=== PATIENT | female | born 1975 | race Caucasian/White ===

== ENCOUNTER → 2016-12-01 | Outpatient (CLI) | payer OTHER ==
[~2016-12-01] MED LIST: ASPIRIN81 M1 PO; BIRTH CONTROL; COREG12.5 M1 PO; IRON325 M1 PO; LISINOPRIL10 M1 PO; MEDROL DOSEPAK4 MG PO; PLAVIX75 M1 PO; PROTONIX40 MG PO
== END | disposition home or self-care (01) ==
LOC: US 02:17
DX: K76.0 Fatty (change of) liver, not elsewhere classified (principal)

== ENCOUNTER 2018-05-08 21:24 | Inpatient (IN) | payer OTHER ==
[~2018-05-08] VITALS: Ht 157.5 cm; Wt 84.1 kg
--- NOTE | ~2018-05-08 | EKG ---
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
--- NOTE | ~2018-05-08 | CON ---
[place], [place] REPORT OF CONSULTATION NAME: CASPER AREVALO UNIT #: [id number] ROOM: 518 DOCTOR: MARY GARZA MD BIRTHDATE: [birth year] DOS: 05/09/2018 HISTORY OF PRESENT ILLNESS: A 43-year-old female with history of previous myocardial infarction with a coronary dissection and stent placement at [facility] in 2016. The patient came in with midsternal chest discomfort radiating to the left arm for the last one hour. No acute EKG changes suggestion of myocardial injury or infarction. Cardiac enzymes have been negative and she is doing quite well right now. Denies any chest discomfort, shortness of breath at rest. No nausea, no vomiting, no GI issues. No neurological issues. PAST MEDICAL HISTORY: Hypertension, coronary artery disease, stent placement, myocardial infarction. MEDICATIONS: The patient is on carvedilol, lisinopril and aspirin. ALLERGIES: None. REVIEW OF SYSTEMS: CONSTITUTIONAL: No fever, no chills. HEENT: No visual disturbance or hearing problems. CARDIOVASCULAR: As per HPI. GASTROINTESTINAL: No nausea, no vomiting. GENITOURINARY: No dysuria or hematuria. NEUROLOGIC: Stable. PHYSICAL EXAMINATION: GENERAL: The patient is alert, oriented x 3. HEENT: Unremarkable. NECK: Supple, no JVD. LUNGS: Clear. HEART: Sounds are regular. NEUROLOGICAL: Stable. LABORATORY DATA: Hemoglobin 11.9, hematocrit 35.9. Cardiac enzymes have been negative. INR is 1, creatinine is 1.06. Sodium 139, potassium 3.6. SGOT, SGPT is within normal limits. EKG sinus rhythm with nonspecific ST-T changes. IMPRESSION: The patient with known history of coronary artery disease, hypertension, hyperlipidemia, previous stent placement, admitted with chest discomfort radiating as well as to the left arm. RECOMMENDATIONS: Continue the present medications, enzymes have been negative, proceed with a nuclear stress test because of the significant cardiac history and symptoms and I will follow up with you. [place], [place] REPORT OF CONSULTATION NAME: CASPER AREVALO UNIT #: [id number] ROOM: 518 DOCTOR: MARY GARZA MD BIRTHDATE: [birth year] MARY GARZA MD CM:CONSTR:REPORT OF CONSULTATION 9 05/09/18 0735 interface
--- NOTE | ~2018-05-08 | EKG ---
[place], [place] ELECTROCARDIOGRAM REPORT NAME: CASPER AREVALO UNIT #: [id number] ROOM: 518 DOCTOR: PARUL DRAFT REPORT BIRTHDATE: [birth year] 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
--- NOTE | ~2018-05-08 | EKG ---
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
--- NOTE | ~2018-05-08 | ST ---
[place], [place] EXERCISE STRESS TEST REPORT NAME: CASPER AREVALO UNIT #: [id number] ROOM: 518 DOCTOR: MARY GARZA MD BIRTHDATE: [birth year] DOS: 05/09/2018 LEXISCAN PORTION OF THE LEXISCAN CARDIOLITE. A 0.4 mg Lexiscan, duration of 10 seconds. With Lexiscan, no new EKG changes. No chest discomfort. Blood pressure and heart rate response was normal. Nuclear images will be reported separately. MARY GARZA MD CM:STRESS:EXERCISE STRESS TEST REPORT 9 MARY GARZA MD
--- NOTE | ~2018-05-08 | WRIGHTHP ---
[place], [place] PATIENT HISTORY AND PHYSICAL EXAM [id number] UN[facility] #: [id number] ROOM: 518 DOCTOR: AMAN CHINO MD BIRTHDATE: [birth year] DOS: 05/08/2018 HISTORY OF PRESENT ILLNESS: This patient is a 43-year-old. 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 She was at work yesterday when she noted that she was having some retrosternal chest pain and some left arm pain. She thought may be having a panic attack, so decided to go home, but by the time she got into her car, she experienced extreme diaphoresis and severe heaviness in the chest and the left arm became almost numb, so she decided to come back to the Emergency Room, where she was evaluated and was admitted. She denies having any chest pains or palpitations after admission and the pain slowly went away. She denies having any nausea, any emesis, any fever or chills. PAST MEDICAL HISTORY: 1. Significant for history of coronary artery disease with history of dissection resulting in [place] and stent [place] [address] Sierra. She has not followed up with anybody for the year and a half. 2. Mixed hyperlipidemia. MEDICATIONS: Medications that she is currently on are aspirin 81 daily, Wellbutrin 150 daily, Coreg 12.5 b.i.d., lisinopril 10 daily. SOCIAL HISTORY: Nonsmoker, does not use any alcohol. FAMILY HISTORY: Significant for father who has hypertension, mother who is healthy and one brother who has ulcerative colitis. PHYSICAL EXAMINATION: GENERAL: She is awake, alert and oriented. VITAL SIGNS: Graphic trend shows a pressure of 127/84, pulse of 80, respirations 16, temperature 97.9. LUNGS: Diminished breath sounds. No wheezes, rales, rhonchi heard. HEART: Regular. ABDOMEN: Soft, scaphoid. EXTREMITIES: Without any edema. ASSESSMENT AND PLAN: 1. The patient with precordial chest pain, rule out myocardial infarction protocol was ordered. So far, the patient is negative. Consultation with Dr. Cross was obtained. The patient has already undergone the stress test and an echocardiogram. If the stress comes back negative, the patient should be able to go home and follow up with the PCP as an outpatient. 2. Mixed hyperlipidemia, currently not on any medications. Lipid profile will be ordered. 3. Elevated creatinine noted with a GFR of 56, stage 2 kidney disease. The patient will need to have that closely followed up. The patient is advised to follow up with the PCP. [place], [place] PATIENT HISTORY AND PHYSICAL EXAM NAME: CASPER AREVALO UNIT #: [id number] ROOM: 8 DOCTOR: AMAN CHINO MD BIRTHDATE: [birth year] AMAN CHINO MD CM:HISPHYS:PATIENT HISTORY AND PHYSICAL EXAMINATION [id number] AMAN CHINO MD 05/09/18 1130 interface
[2018-05-08 21:38] VITALS: BP 155/87
[2018-05-08 21:42] LABS: BASO % 0.4 % (0.0-1.0); EOS # 0.4 10*3/uL (0.0-0.4); EOS % 3.4 % (1.0-4.0); HEMATOCRIT 35.6 % (37.0-47.0); HEMOGLOBIN 11.9 g/dl (12.0-16.0); LYMPH # 3.7 10*3/uL (1.3-4.4); LYMPH % 32.4 % (27.0-41.0); MEAN CORPUSCULAR HGB 32.1 pg (27.0-31.0); MEAN CORPUSCULAR HGB CONC 33.4 g/dl (33.0-37.0); MEAN PLATELET VOLUME 10.7 fl (9.6-12.3); MONO # 0.8 10*3/uL (0.1-1.0); NEUT # 6.4 10*3/uL (2.3-7.9); NEUT % 56.4 % (47.0-73.0); PLATELET COUNT AUTOMATED 260 10*3/uL (130-400); RED BLOOD COUNT 3.71 10*6/uL (4.10-5.10); RED CELL DISTRI WIDTH 12.2 % (0-14.5); WHITE BLOOD COUNT 11.3 10*3/uL (4.8-10.8)
[2018-05-08] MEDS ORDERED: BUPROPION HCL150 M1 PO (21:45)
[2018-05-08 21:55] LABS: ACT PARTIAL THROMBO TIME 25.5 SECONDS (20.8-31.5)
[2018-05-08 21:57] LABS: ALBUMIN 3.5 gm/dl (3.1-4.5); ALKALINE PHOSPHATASE 93 U/L (45-117); BUN 20 mg/dl (7-24); CHLORIDE 108 mmol/L (98-107); CREATININE 1.06 mg/dL (0.55-1.02); POTASSIUM 3.6 mmol/L (3.5-5.1); SGOT/AST 10 IU/L (3-35); SGPT/ALT 18 U/L (12-78); SODIUM 139 mmol/L (136-145); TOTAL PROTEIN 7.3 gm/dL (6.4-8.2)
[2018-05-08 22:00] LABS: TROPONIN I < 0.015 ng/ml (<0.045)
[2018-05-08 22:10] VITALS: BP 146/80
[2018-05-08 22:45] VITALS: BP 135/80
[2018-05-08 23:30] VITALS: BP 127/84
[2018-05-09 08:09] LABS: CHOLESTEROL 166 mg/dL (<200); HDL CHOLESTEROL 52 mg/dl (40-60); LDL CHOLESTEROL 92 mg/dL (9-159); TRIGLYCERIDES 112 mg/dl (<150); VLDL CHOLESTEROL 22 mg/dL (6-40)
[2018-05-09 12:00] VITALS: BP 130/65
== END 2018-05-09 13:43 | disposition home or self-care (01) | DRG 313 ==
LOC: ED 21:24 → 5E 22:33 → EDHOLD 22:33 → 5E 22:45
PROVIDERS: Internal Medicine; Student in an Organized Health Care Education/Training Program
PROC: 3E073KZ Introduction of Other Diagnostic Substance into Coronary Artery, Percutaneous Approach (ICD-10-PCS; principal; 2018-05-09)
PROC: 4A02XM4 Measurement of Cardiac Total Activity, External Approach (ICD-10-PCS; principal; 2018-05-09)
DX: R07.2 Precordial pain (principal); I25.10 Atherosclerotic heart disease of native coronary artery without angina pectoris; N18.2 Chronic kidney disease, stage 2 (mild); E78.2 Mixed hyperlipidemia; I12.9 Hypertensive chronic kidney disease with stage 1 through stage 4 chronic kidney disease, or unspecified chronic kidney disease; I25.2 Old myocardial infarction; Z95.5 Presence of coronary angioplasty implant and graft; Z79.82 Long term (current) use of aspirin; Z79.899 Other long term (current) drug therapy

== ENCOUNTER → 2018-08-30 | Outpatient (CLI) | payer OTHER ==
[~2018-08-30] MED LIST changes: +BUPROPION HCL150 M1 PO
== END | disposition home or self-care (01) ==
LOC: US 02:43
DX: N93.9 Abnormal uterine and vaginal bleeding, unspecified (principal)

== ENCOUNTER → 2019-06-08 | Outpatient (CLI) | payer OTHER ==
[2019-06-08 07:45] LABS: HEMATOCRIT 38.6 % (37.0-47.0); HEMOGLOBIN 12.5 g/dl (12.0-16.0); MEAN CELL VOLUME 97.7 fl (81.0-99.0); MEAN CORPUSCULAR HGB 31.6 pg (27.0-31.0); MEAN CORPUSCULAR HGB CONC 32.4 g/dl (33.0-37.0); MEAN PLATELET VOLUME 11.1 fl (9.6-12.3); RED BLOOD COUNT 3.95 10*6/uL (4.10-5.10); RED CELL DISTRI WIDTH 12.1 % (0-14.5); WHITE BLOOD COUNT 7.5 10*3/uL (4.8-10.8)
[2019-06-08 08:34] LABS: ALBUMIN 3.7 gm/dl (3.1-4.5); ALKALINE PHOSPHATASE 87 U/L (45-117); BUN 16 mg/dl (7-24); CHLORIDE 111 mmol/L (98-107); CHOLESTEROL 167 mg/dL (<200); CREATININE 0.93 mg/dL (0.55-1.02); HDL CHOLESTEROL 48 mg/dl (40-60); LDL CHOLESTEROL 97 mg/dL (9-159); POTASSIUM 3.8 mmol/L (3.5-5.1); SGOT/AST 7 IU/L (3-35); SGPT/ALT 18 U/L (12-78); SODIUM 141 mmol/L (136-145); TOTAL PROTEIN 7.7 gm/dL (6.4-8.2); TRIGLYCERIDES 112 mg/dl (<150); VLDL CHOLESTEROL 22 mg/dL (6-40)
== END | disposition home or self-care (01) ==
LOC: LAB 07:25
PROVIDERS: Family Medicine
DX: E55.9 Vitamin D deficiency, unspecified (principal); E78.00 Pure hypercholesterolemia, unspecified; I10 Essential (primary) hypertension

== ENCOUNTER → 2020-06-09 | Outpatient (CLI) | payer OTHER ==
[2020-06-09 09:33] LABS: HEMATOCRIT 37.6 % (37.0-47.0); MEAN CELL VOLUME 97.2 fl (81.0-99.0); MEAN CORPUSCULAR HGB 31.5 pg (27.0-31.0); MEAN CORPUSCULAR HGB CONC 32.4 g/dl (33.0-37.0); MEAN PLATELET VOLUME 11.4 fl (9.6-12.3); RED BLOOD COUNT 3.87 10*6/uL (4.10-5.10); WHITE BLOOD COUNT 9.2 10*3/uL (4.8-10.8)
[2020-06-09 09:57] LABS: ALBUMIN 3.4 gm/dl (3.1-4.5); BUN 15 mg/dl (7-24); CHLORIDE 108 mmol/L (98-107); POTASSIUM 4.1 mmol/L (3.5-5.1); SODIUM 138 mmol/L (136-145)
[2020-06-09 10:03] LABS: ALKALINE PHOSPHATASE 77 U/L (45-117); CHOLESTEROL 195 mg/dL (<200); CREATININE 0.86 mg/dL (0.55-1.02); HDL CHOLESTEROL 56 mg/dl (40-60); LDL CHOLESTEROL 114 mg/dL (9-159); SGOT/AST 12 IU/L (3-35); SGPT/ALT 17 U/L (12-78); TOTAL PROTEIN 7.1 gm/dL (6.4-8.2); TRIGLYCERIDES 123 mg/dl (<150); VLDL CHOLESTEROL 25 mg/dL (6-40)
== END | disposition home or self-care (01) ==
LOC: LAB 08:04
PROVIDERS: ATTEND Family Medicine
DX: Z13.220 Encounter for screening for lipoid disorders (principal); I10 Essential (primary) hypertension; E55.9 Vitamin D deficiency, unspecified; R53.83 Other fatigue; R63.5 Abnormal weight gain

== ENCOUNTER → 2021-12-30 | Outpatient (CLI) | payer OTHER | END | disposition home or self-care (01) | LOC: MAMMO 08:03 | PROVIDERS: ATTEND Nurse Practitioner Women's Health | DX: Z12.31 Encounter for screening mammogram for malignant neoplasm of breast (principal); N63.13 Unspecified lump in the right breast, lower outer quadrant ==

== ENCOUNTER → 2022-02-11 | Outpatient (CLI) | payer OTHER | END | disposition home or self-care (01) | LOC: US 02-10 18:20 | PROVIDERS: ATTEND Nurse Practitioner Women's Health | DX: N63.0 Unspecified lump in unspecified breast (principal); N60.01 Solitary cyst of right breast ==

== ENCOUNTER → 2022-07-17 | Outpatient (CLI) | payer OTHER ==
[2022-07-17 08:44] LABS: HEMATOCRIT 39.3 % (37.0-47.0); MEAN CELL VOLUME 96.6 fl (81.0-99.0); MEAN CORPUSCULAR HGB 31.4 pg (27.0-31.0); MEAN CORPUSCULAR HGB CONC 32.6 g/dl (33.0-37.0); MEAN PLATELET VOLUME 10.9 fl (9.6-12.3); RED BLOOD COUNT 4.07 10*6/uL (4.10-5.10); RED CELL DISTRI WIDTH 11.9 % (0-14.5); WHITE BLOOD COUNT 7.7 10*3/uL (4.8-10.8)
[2022-07-17 09:03] LABS: ALKALINE PHOSPHATASE 79 U/L (46-116); BUN 13 mg/dl (9-23); CHLORIDE 108 mmol/L (98-107); CHOLESTEROL 199 mg/dL (<200); LDL CHOLESTEROL 127 mg/dL (9-159); POTASSIUM 4.1 mmol/L (3.4-5.1); SGPT/ALT 16 U/L (10-49); TOTAL PROTEIN 7.5 gm/dL (6.0-8.0); TRIGLYCERIDES 98 mg/dl (<150)
== END | disposition home or self-care (01) ==
LOC: LAB 07:47
PROVIDERS: ATTEND Family Medicine
DX: Z13.220 Encounter for screening for lipoid disorders (principal); I10 Essential (primary) hypertension

== ENCOUNTER → 2023-03-17 | Outpatient (CLI) | payer OTHER | END | disposition home or self-care (01) | LOC: MAMMO 01:57 | PROVIDERS: ATTEND Nurse Practitioner Women's Health | DX: Z12.31 Encounter for screening mammogram for malignant neoplasm of breast (principal) ==

== ENCOUNTER 2023-07-27 17:16 | Inpatient (IN) | payer OTHER ==
[~2023-07-27] VITALS: Ht 157.4 cm; Wt 90.3 kg
[2023-07-27 17:22] VITALS: BP 113/70
[2023-07-27 17:45] LABS: BASO % 0.4 % (0.0-1.0); EOS # 0.4 10*3/uL (0.0-0.4); EOS % 4.4 % (1.0-4.0); HEMATOCRIT 36.3 % (37.0-47.0); LYMPH # 2.9 10*3/uL (1.3-4.4); MEAN CELL VOLUME 96.8 fl (81.0-99.0); MEAN CORPUSCULAR HGB 30.9 pg (27.0-31.0); MEAN PLATELET VOLUME 10.6 fl (9.6-12.3); MONO # 0.5 10*3/uL (0.1-1.0); MONO % 6.8 % (3.0-9.0); NEUT # 4.2 10*3/uL (2.3-7.9); NEUT % 52.1 % (47.0-73.0); PLATELET COUNT AUTOMATED 313 10*3/uL (130-400); RED BLOOD COUNT 3.75 10*6/uL (4.10-5.10); RED CELL DISTRI WIDTH 12.1 % (0-14.5)
[2023-07-27 18:04] LABS: ACT PARTIAL THROMBO TIME 23.4 SECONDS (20.0-32.1)
[2023-07-27 18:06] LABS: ALKALINE PHOSPHATASE 91 U/L (46-116); BUN 12 mg/dl (9-23); CHLORIDE 108 mmol/L (98-107); LIPASE 37 U/L (12-53); POTASSIUM 3.7 mmol/L (3.4-5.1); SGPT/ALT 21 U/L (5-49); TOTAL PROTEIN 7.1 gm/dL (6.0-8.0)
[2023-07-27 18:07] LABS: BETA-HCG, QUANT < 3.0 mIU/mL (3-10)
[2023-07-27 18:22] VITALS: BP 136/86
[2023-07-27] MEDS ORDERED: BUPROPION HYDR150 M1 PO (18:55)
[2023-07-27] MEDS ORDERED: Zestril,Prinivi40 MG PO (18:55)
[2023-07-27 20:27] VITALS: BP 139/77
[2023-07-27] MEDS ORDERED: HEPARIN SODIUM 25,000 UNITS/250 ML BAG IV SCH (21:55)
[2023-07-27] MEDS ORDERED: ATORVASTATIN CALCIUM 80 MG TAB PO ONE (21:55)
[2023-07-27] MEDS ORDERED: ASPIRIN, CHEWABLE 81 MG TAB PO ONE (21:55)
[2023-07-27 22:00] VITALS: BP 123/72
[2023-07-28] VITALS (7 sets, daily range): BP systolic 119–142; BP diastolic 71–86
[2023-07-28] MEDS ORDERED: LISINOPRIL 40 MG TAB PO SCH (10:00)
[2023-07-28] MEDS ORDERED: CARVEDILOL 12.5 MG TAB PO SCH ×2 (10:00→22:00)
[2023-07-28] MEDS ORDERED: buPROPion SR 150 MG TAB PO SCH (10:00)
[2023-07-28] MEDS ORDERED: ASPIRIN ENTERIC COATED 81 MG TAB PO SCH (10:00)
[2023-07-28 12:53] LABS: ACT PARTIAL THROMBO TIME 45.9 SECONDS (20.0-32.1)
[2023-07-28] MEDS ORDERED: ATORVASTATIN CALCIUM 80 MG TAB PO SCH (22:00)
[2023-07-29] VITALS: BP 116/61
[2023-07-29 05:02] LABS: ALKALINE PHOSPHATASE 73 U/L (46-116); BUN 12 mg/dl (9-23); CHLORIDE 107 mmol/L (98-107); CHOLESTEROL 152 mg/dL (<200); LDL CHOLESTEROL 78 mg/dL (9-159); POTASSIUM 4.2 mmol/L (3.4-5.1); SGPT/ALT 13 U/L (5-49); TOTAL PROTEIN 6.8 gm/dL (6.0-8.0); TRIGLYCERIDES 133 mg/dl (<150)
[2023-07-29 06:06] LABS: BASO % 0.2 % (0.0-1.0); EOS # 0.3 10*3/uL (0.0-0.4); EOS % 3.9 % (1.0-4.0); HEMATOCRIT 35.8 % (37.0-47.0); LYMPH # 3.2 10*3/uL (1.3-4.4); LYMPH % 38.3 % (27.0-41.0); MEAN CELL VOLUME 96.5 fl (81.0-99.0); MEAN CORPUSCULAR HGB 31.3 pg (27.0-31.0); MEAN CORPUSCULAR HGB CONC 32.4 g/dl (33.0-37.0); MEAN PLATELET VOLUME 10.9 fl (9.6-12.3); MONO # 0.5 10*3/uL (0.1-1.0); MONO % 5.9 % (3.0-9.0); NEUT # 4.3 10*3/uL (2.3-7.9); NEUT % 51.1 % (47.0-73.0); PLATELET COUNT AUTOMATED 265 10*3/uL (130-400); RED BLOOD COUNT 3.71 10*6/uL (4.10-5.10); RED CELL DISTRI WIDTH 12.1 % (0-14.5); WHITE BLOOD COUNT 8.4 10*3/uL (4.8-10.8)
[2023-07-29 06:19] LABS: ACT PARTIAL THROMBO TIME 60.7 SECONDS (20.0-32.1)
[2023-07-29 08:00] VITALS: BP 136/81
== END 2023-07-29 11:00 | disposition other institution (70) | DRG 281 ==
LOC: ED 17:16 → ICCU 23:22 → EDHOLD 23:22 → ICCU 07-28 07:33
PROVIDERS: Emergency Medicine; Internal Medicine Cardiovascular Disease; ADMIT Internal Medicine; ATTEND Internal Medicine
DX: I21.4 Non-ST elevation (NSTEMI) myocardial infarction (principal); F33.0 Major depressive disorder, recurrent, mild; I10 Essential (primary) hypertension; I25.2 Old myocardial infarction; E66.9 Obesity, unspecified; Z68.36 Body mass index [BMI] 36.0-36.9, adult

== ENCOUNTER → 2024-07-27 | Outpatient (CLI) | payer OTHER ==
[~2024-07-27] MED LIST changes: +BUPROPION HYDR150 M1 PO; +Zestril,Prinivi40 MG PO
[2024-07-27 07:40] LABS: HEMATOCRIT 35.4 % (37.0-47.0); MEAN CELL VOLUME 95.4 fl (81.0-99.0); MEAN CORPUSCULAR HGB CONC 32.5 g/dl (33.0-37.0); MEAN PLATELET VOLUME 10.5 fl (9.6-12.3); RED BLOOD COUNT 3.71 10*6/uL (4.10-5.10); RED CELL DISTRI WIDTH 12.4 % (0-14.5)
[2024-07-27 08:46] LABS: ALKALINE PHOSPHATASE 100 U/L (46-116); BUN 12 mg/dl (9-23); CHLORIDE 107 mmol/L (98-107); CHOLESTEROL 206 mg/dL (<200); LDL CHOLESTEROL 132 mg/dL (9-159); SGPT/ALT 12 U/L (5-49); TOTAL PROTEIN 6.9 gm/dL (6.0-8.0); TRIGLYCERIDES 117 mg/dl (<150)
== END | disposition home or self-care (01) ==
LOC: LAB 07:25
PROVIDERS: ATTEND Family Medicine
DX: I10 Essential (primary) hypertension (principal); E78.00 Pure hypercholesterolemia, unspecified; E55.9 Vitamin D deficiency, unspecified; F41.1 Generalized anxiety disorder; R53.83 Other fatigue

== ENCOUNTER → 2025-02-15 | Outpatient (CLI) | payer OTHER ==
[2025-02-15 07:49] LABS: MEAN CELL VOLUME 96.3 fl (81.0-99.0); MEAN CORPUSCULAR HGB 31.1 pg (27.0-31.0); MEAN PLATELET VOLUME 10.5 fl (9.6-12.3); NUCLEATED RED BLOOD CELL 0.0 % (0.0-0.0); NUCLEATED RED BLOOD CELL 0.0 10*3/uL (0.0-0.0); PLATELET COUNT AUTOMATED 267.0 10*3/uL (130-400); RED CELL DISTRI WIDTH 12.1 % (0-14.5)
[2025-02-15 08:40] LABS: BUN 13 mg/dl (9-23); CPK 117 U/L (34-171); LDL CHOLESTEROL 128 mg/dL (9-159); SGPT/ALT 19 U/L (5-49)
[2025-02-15 09:42] LABS: VITAMIN D, 25-HYDROXY 32.1 ng/mL (30-100)
== END | disposition home or self-care (01) ==
LOC: LAB 00:03
PROVIDERS: ATTEND Family Medicine
DX: I10 Essential (primary) hypertension (principal); E55.9 Vitamin D deficiency, unspecified; K21.9 Gastro-esophageal reflux disease without esophagitis; R53.83 Other fatigue

== ENCOUNTER → 2025-02-22 | Outpatient (CLI) | payer OTHER | END | disposition home or self-care (01) | LOC: LAB 00:30 | PROVIDERS: ATTEND Nurse Practitioner Women's Health | DX: N95.1 Menopausal and female climacteric states (principal); R35.0 Frequency of micturition ==

== ENCOUNTER → 2025-03-28 | Outpatient (CLI) | payer OTHER | END | disposition home or self-care (01) | LOC: MAMMO 02:14 | PROVIDERS: ATTEND Nurse Practitioner Women's Health | DX: Z12.31 Encounter for screening mammogram for malignant neoplasm of breast (principal) ==